=== PATIENT | male | born 1990 | race American Indian/Alaskan Native ===

== ENCOUNTER 2017-04-19 09:50 | Emergency (ER) | payer SELFPAY ==
[2017-04-19 10:31] VITALS: BP 113/83
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
--- NOTE | 2017-04-19 14:07 | Cat Scan Report ---
CT SCAN OF THE CERVICAL SPINE: HISTORY: Neck pain. TECHNIQUE: Contiguous 1.25 mm axial images of the cervical spine were obtained. Sagittal and coronal reformatted images. FINDINGS: There is normal alignment of the cervical spine. The body, pedicles and posterior ligaments appear normal. No evidence of fracture or subluxation is seen. The spinal canal appears normal. The prevertebral soft tissues appear normal. IMPRESSION: Unremarkable CT of the cervical spine. No acute process is noted.
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
== END 2017-04-19 12:00 | disposition left against medical advice (07) ==
LOC: ED 09:50
DX: S06.0X1A Concussion with loss of consciousness of 30 minutes or less, initial encounter (principal); G44.319 Acute post-traumatic headache, not intractable; F17.200 Nicotine dependence, unspecified, uncomplicated; F12.10 Cannabis abuse, uncomplicated; Y08.89XA Assault by other specified means, initial encounter; Y93.89 Activity, other specified; Y92.89 Other specified places as the place of occurrence of the external cause; Y99.8 Other external cause status
CPT/HCPCS: 70450; 70486; 72125